=== PATIENT | female | born 1975 | race American Indian/Alaskan Native ===

== ENCOUNTER 2021-07-25 12:08 | Outpatient (CLI) | payer OTHER | END 2021-07-25 12:14 | disposition home or self-care (01) | LOC: NST 12:08 | PROVIDERS: ATTEND Obstetrics & Gynecology Maternal & Fetal Medicine | DX: Z34.83 Encounter for supervision of other normal pregnancy, third trimester (principal) ==

== ENCOUNTER 2021-08-16 10:46 | Outpatient (CLI) | payer OTHER | END 2021-08-16 11:58 | disposition home or self-care (01) | LOC: NST 10:46 | PROVIDERS: ATTEND Obstetrics & Gynecology Maternal & Fetal Medicine | DX: O16.3 Unspecified maternal hypertension, third trimester (principal) ==

== ENCOUNTER 2021-08-29 11:07 | Outpatient (CLI) | payer OTHER | END 2021-08-29 11:27 | disposition home or self-care (01) | LOC: NST 11:07 | PROVIDERS: ATTEND Obstetrics & Gynecology | DX: Z34.83 Encounter for supervision of other normal pregnancy, third trimester (principal) ==

== ENCOUNTER 2021-09-12 11:27 | Outpatient (CLI) | payer OTHER ==
[2021-09-13] MEDS ORDERED: PRENATAL TABLE1 EAC1 PO (19:10)
== END 2021-09-12 12:41 | disposition home or self-care (01) ==
LOC: NST 11:27
PROVIDERS: ATTEND Obstetrics & Gynecology
DX: Z34.83 Encounter for supervision of other normal pregnancy, third trimester (principal)

== ENCOUNTER 2021-09-13 15:02 | Inpatient (IN) | payer OTHER ==
[~2021-09-13] VITALS: Ht 162.6 cm; Wt 2.7 kg
[2021-09-13] MEDS ORDERED: PRENATAL TABLE1 EAC1 PO (19:10)
== END 2021-09-16 10:45 | disposition home or self-care (01) | DRG 788 ==
LOC: OB/GYN 15:02 → LDR 15:02 → OB/GYN 18:56 → LDR 09-14 07:45 → OB/GYN 09-16 10:45
PROVIDERS: ADMIT Obstetrics & Gynecology Maternal & Fetal Medicine; ATTEND Obstetrics & Gynecology Maternal & Fetal Medicine
PROC: 4A1HXCZ Monitoring of Products of Conception, Cardiac Rate, External Approach (ICD-10-PCS; 2021-09-13)
PROC: 10D00Z1 Extraction of Products of Conception, Low, Open Approach (ICD-10-PCS; principal; 2021-09-13 17:00)
DX: O62.0 Primary inadequate contractions (principal); Z20.822 Contact with and (suspected) exposure to COVID-19; Z3A.38 38 weeks gestation of pregnancy; Z37.0 Single live birth